=== PATIENT | male | born 1955 | race Caucasian/White ===

== ENCOUNTER 2022-03-31 11:31 | Emergency (ER) | payer OTHER ==
[2022-03-31] MEDS ORDERED: Sodium Chloride 0.9% 2.5 ML Syringe FLUSH PRN (11:57)
[2022-03-31] MEDS ORDERED: Sodium Chloride 0.9% 10 ML Syringe FLUSH PRN (11:57)
[2022-03-31 12:38] LABS: CARBON DIOXIDE,CO2 27.2 mmol/L (21.0-32.0)
[2022-03-31] MEDS ORDERED: Iopamidol 755 MG/ML 500 ML Multipack Bottle IVPUSH STA (13:21)
== END 2022-03-31 16:08 | disposition home or self-care (01) ==
LOC: MW.ED 11:31
DX: K40.90 Unilateral inguinal hernia, without obstruction or gangrene, not specified as recurrent (principal)
CPT/HCPCS: 36415; 74177; 80053; 85025; 99284; J3490; Q9967